=== PATIENT | female | born 1975 | race African-American/Black ===

== ENCOUNTER 2021-02-28 16:42 | Emergency (ER) | payer OTHER ==
[2021-02-28 17:46] VITALS: BP 117/78; PULSE 85; TEMP 97.9; BMI 29.1
[2021-02-28] MEDS ORDERED: FLUCONAZOLE 150 MG TABLET PO ONE ×2 (19:20→19:22)
== END 2021-02-28 20:18 | disposition left against medical advice (07) ==
LOC: JERFT 16:42
DX: N76.0 Acute vaginitis (principal)
CPT/HCPCS: 36415; 84703; 87070; 87077; 87205; 87491; 87591; 87661; 99283-25

== ENCOUNTER 2021-07-08 00:16 | Emergency (ER) | payer OTHER ==
[2021-07-08 00:35] VITALS: BP 140/89; PULSE 87; TEMP 98.9; BMI 28.1
[2021-07-08] MEDS ORDERED: MAG HYDROX/AL HYDROX/SIMETH 30 ML UNIT-DOSE CUP PO ONE (00:54)
[2021-07-08] MEDS ORDERED: FAMOTIDINE 20 MG/50 ML IVPB 20 MG/50 ML MG IVPB ONE (00:54)
[2021-07-08] MEDS ORDERED: ACETAMINOPHEN 1000 MG/100 ML BAG IVPB ONE (00:55)
[2021-07-08] MEDS ORDERED: ACETAMINOPHEN INJECTION 100 ML IVPB ONE (00:57)
[2021-07-08] MEDS ORDERED: MAG HYDROX/AL HYDROX/SIMETH 30 ML UNIT-DOSE CUP ONE (00:57)
[2021-07-08] MEDS ORDERED: FAMOTIDINE 10 MG/ML VIAL IVPB ONE (00:58)
[2021-07-08 01:28] LABS: BASO % 0.5 % (0-2.0); EOS % 1.1 % (0-4.5); EPI CELLS >36 /uL (0-25.1); HEMATOCRIT 38.1 % (32.4-45.2); HEMOGLOBIN 12.8 GM/dL (10.7-15.3); HYALINE CASTS 0 /uL (0-3.1); LYMPH % 31.8 % (8-40); MCH 28.3 pg (25.7-33.7); MCHC 33.7 g/dl (32.0-36.0); MONO % 8.1 % (3.8-10.2); NEUT % 58.5 % (42.8-82.8); PH,URINE 7.5 (5.0-8.0); PLATELET COUNT 246 10^3/uL (134-434); RBC 4.53 M/mm3 (3.60-5.2); RDW 14.1 % (11.6-15.6); URINE APPEARANCE CLEAR; URINE BACTERIA 480 /uL (0-1359); URINE BILIRUBIN NEGATIVE (NEGATIVE); URINE COLOR YELLOW; URINE GLUCOSE (UA) NEGATIVE (NEGATIVE); URINE KETONE NEGATIVE (NEGATIVE); URINE LEUK ESTERASE TRACE (NEGATIVE); URINE NITRITE NEGATIVE (NEGATIVE); URINE PROTEIN NEGATIVE (NEGATIVE); URINE RBC 9 /uL (0-23.9); URINE WBC 9 /uL (0-25.8); WHITE BLOOD COUNT 7.4 K/mm3 (4.0-10.0)
[2021-07-08 01:38] LABS: CALCIUM 8.7 mg/dL (8.5-10.1)
[2021-07-08 01:39] LABS: ALBUMIN 3.7 g/dl (3.4-5.0); BLOOD UREA NITROGEN 12.9 mg/dL (7-18)
[2021-07-08 01:42] LABS: CREATININE 0.7 mg/dL (0.55-1.3)
[2021-07-08 01:43] LABS: BILIRUBIN,TOTAL 0.5 mg/dL (0.2-1)
[2021-07-08 01:44] LABS: TOT PROT 6.8 g/dl (6.4-8.2)
[2021-07-08] MEDS ORDERED: SODIUM PHOSPHATE/NA BIPHOS 133 ML ENEMA PR ONE (04:14)
[2021-07-08] MEDS ORDERED: SODIUM CHLORIDE 0.9% 500 ML INFUS.BAG IV ONE (05:30)
== END 2021-07-08 06:36 | disposition home or self-care (01) ==
LOC: JER 00:16
PROC: 3E0333Z Introduction of Anti-inflammatory into Peripheral Vein, Percutaneous Approach (ICD-10-PCS; principal; 2021-07-08)
PROC: 3E033GC Introduction of Other Therapeutic Substance into Peripheral Vein, Percutaneous Approach (ICD-10-PCS; 2021-07-08)
DX: R10.9 Unspecified abdominal pain (principal); K59.00 Constipation, unspecified
CPT/HCPCS: 36415; 74177-TC; 80053; 81003; 83690; 84484; 84703; 85025; 87086; 93005; 93010; 99285-25